=== PATIENT | female | born 1970 | race American Indian/Alaskan Native ===

== ENCOUNTER 2016-10-23 10:46 | Day surgery (SDC) | payer OTHER ==
[2016-10-23] MEDS ORDERED: NACL 0.9% 1000 ML 1,000 ML IV SCH (11:00)
--- NOTE | 2016-10-23 11:54 | Anesthesia Day of Surgery ---
Anesthesia Day of Surgery - Day of Surgery Patient Examined: Yes Patient H&P Reviewed: Yes Patient is NPO: Yes
--- NOTE | 2016-10-23 11:54 | Anesthesia Consultation ---
Anesthesia Consult and Med Hx Date of service: 10/23/16 - Airway Anesthetic Teeth Evaluation: Good ROM Head & Neck: Adequate Mental/Hyoid Distance: Adequate Mallampati Class: Class II Intubation Access Assessment: Probably Good - Pulmonary Exam CTA: Yes - Cardiac Exam Cardiac Exam: RRR - Pre-Operative Health Status ASA Pre-Surgery Classification: ASA2 Proposed Anesthetic Plan: MAC - Pulmonary Hx Smoking: Yes - Endocrine Hx Non-Insulin Dependent Diabetes: Yes - Other Systems Hx Cancer: No
[2016-10-23] MEDS ORDERED: DIPRIVAN 10 MG/ML IV ONE ×4 (11:56→12:39)
--- NOTE | 2016-10-23 12:06 | History and Physical Report ---
History of Present Illness Date of examination: 10/23/16 Date of admission: 10/23/2016 Chief complaint: Family history of colon cancer, colorectal cancer screening. History of present illness: Patient is a 46 -year-old female who presents for evaluation. She presents with a strong family history of colorectal cancers. Patient also has not had prior colorectal cancer screening examination. She is -Chinese. She denies any other complaints. Patient was referred by her primary care physician. Past History Past Medical History: diabetes, hypertension Past Surgical History: No surgical history Social history: denies: smoking, alcohol abuse Family history: cancer (colorectal cancer) Medications and Allergies Allergies Allergy/AdvReac Type Severity Reaction Status Date / Time cefazolin sodium [From [facility]] Allergy Hives Verified 10/20/16 14:01 grass pollen Allergy Itching, Verified 10/20/16 14:01 Swollen itchey eyes hydrocodone Allergy Shortness Verified 10/20/16 14:01 of Breath shellfish derived Allergy Anaphylaxis Verified 10/20/16 14:01 tomato Allergy blisters Verified 10/20/16 14:01 mouth and skin vancomycin Allergy Hives Verified 10/20/16 14:01 COCONUT FLAKES Allergy blisters Uncoded 10/20/16 14:01 mouth and skin Home Medications Medication Instructions Recorded Confirmed Last Taken Type Famotidine [Pepcid] 20 mg PO BID 10/20/16 10/23/16 10/21/16 History diphenhydrAMINE [Benadryl CAP] 25 mg PO QDAY PRN 10/20/16 10/23/16 10/21/16 History metFORMIN [Glucophage] 500 mg PO BID 10/20/16 10/23/16 10/21/16 History predniSONE [Deltasone] 20 mg PO BID 10/20/16 10/23/16 10/21/16 History Active Meds: Active Medications Sodium Chloride (Nacl 0.9% 1000 Ml) 1,000 mls @ 50 mls/hr IV DIRECT CARMELA Last Admin: 10/23/16 11:17 Dose: 50 mls/hr Review of Systems All systems: negative Exam - Constitutional Vitals: Temp Pulse Resp BP Pulse Ox 98.2 F 85 13 132/79 100 10/23/16 11:15 10/23/16 11:15 10/23/16 11:15 10/23/16 11:15 10/23/16 11:15 General appearance: Present: no acute distress, well-nourished - EENT Eyes: Present: PERRL ENT: hearing intact, clear oral mucosa - Neck Neck: Present: supple, normal ROM - Respiratory Respiratory effort: normal Respiratory: bilateral: CTA - Cardiovascular Heart Sounds: Present: S1 & S2. Absent: rub, click - Extremities Extremities: pulses symmetrical, No edema Peripheral Pulses: within normal limits - Abdominal General gastrointestinal: Present: soft, non-tender, non-distended, normal bowel sounds Female genitourinary: Present: normal - Integumentary Integumentary: Present: clear, warm, dry - Musculoskeletal Musculoskeletal: gait normal, strength equal bilaterally - Psychiatric Psychiatric: appropriate mood/affect, intact judgment & insight - Neurologic Neurologic: CNII-XII intact, moves all extremities Results - Labs Labs: Abnormal lab results 10/23/16 Range/Units 11:21 POC Glucose 112 H (70-105) Assessment and Plan Colorectal cancer. Family history of colon cancer. Plan: Proceed with colonoscopic assessment.
--- NOTE | 2016-10-23 12:09 | Operative Report ---
Operative Report Operative Report: Date of procedure: 10/23/2016 Procedure: Colonoscopy with ablation, multiple hot biopsy polypectomies, cold biopsies, submucosal injection with tattoo of polyp site. Attending physician: Patricio Her MD Superintendent General: Patricio Her MD Indication: Patient is a 46-year-old female who presents for colorectal cancer screening. She has a strong family history of colorectal cancer. A colonoscopy is done to evaluate patient so that treatment may be directed based on the findings. Consent: Informed consent was obtained after advising the patient and family regarding nature of this procedure, its indications, potential benefits as well as possible complications including but not limited to bleeding perforation and adverse reaction to medication, infection as well as other cardiopulmonary complications. An informed written and verbal consent was then obtained after due opportunity was provided for questions and answers. Monitoring: Patient was monitored continuously with pulse oximetry and electrocardiographic recordings as well as blood pressure recordings. Vital signs remained stable throughout this procedure with no untoward events. Preoperative assessment: Patient was assessed immediately prior to this procedure for capacity to tolerate monitored anesthesia care and moderate sedation as well as general anesthesia. Patient's ASA classification is 2, Mallampati class is 2, Hyomental distance is 3. Instrument: [employer] video-colonoscope Medications: Propofol given intravenously in divided doses. For details please refer to anesthesia records. Description of procedure: Patient was placed in the left lateral decubitus position after achieving sedation, a digital rectal examination was performed following which the colonoscope was introduced into the anal verge and advanced to the cecum which was identified by the cecal valve, the appendiceal orifice, as well as by the cecal strap and direct transillumination. The colonoscope was subsequently withdrawn with careful inspection of all mucosal surfaces. Patient tolerated this procedure well and was subsequently taken to the recovery room. The following findings were noted. Findings: Patient had a broad-based ascending colon polypoid lesion. It measured approximately 3 cm in length by about 2-3 cm in diameter and was flat. Endoscopically, it was highly suspicious for a dysplastic lesion and possibly even established colon cancer. It was not removable by endoscopy. Several cold cold biopsies were obtained from this. The proximal and distal margins was subsequently tattooed. This lesion was ablated also as much as possible. In the descending colon, there were 2 adjoining flat polyps that were removed by hot biopsy polypectomy. In the rectum, there was a diminutive flat polyp that was ablated. On the retroflex view at the anal verge patient had internal hemorrhoids. Impression: Abnormal appearing polypoid lesion in the ascending colon of unspecified significance. This likely represents a neoplasm or a dysplastic polyp. Descending colon polyp status post hot biopsy polypectomy. Rectal polyp status post ablation. Patient is status post a submucosal injection and tattoo of the proximal and distal margins of the proximal ascending colon polypoid lesion Internal hemorrhoids. Plan: Follow pathology report. Patient will need partial resection of the ascending colon particularly in the area involved by the dysplastic lesion. It should be noted that this was tattooed. This is particularly so if the lesion is found to have dysplasia or cancer. Patient does have a strong family history of colorectal cancer and this is her index colonoscopy. If indeed this lesion is resected, patient will need a surveillance colonoscopy in 6 months. In the interim will encourage high -fiber diet. Additional recommendations will be made in follow-up.
[2016-10-23] MEDS ORDERED: GI SPOT IJ ONE ×2 (12:24→12:29)
[2016-10-23 13:17] VITALS: BP 126/84
--- NOTE | 2016-10-23 13:24 | Post Anesthesia Evaluation ---
- Post Anesthesia Evaluation Patient Participated: Yes Airway Patent: Yes Stable Respiratory Function: Yes Nausea/Vomiting: No Temp > 96.8F: Yes Pain Manageable: Yes Adequeate Hydration: Yes Anesthesia Complications: No Block Receding Appropriately: Not Applicable Patient on Ventilator: No
== END 2016-10-23 10:47 | disposition home or self-care (01) ==
LOC: GIO 10:46
PROVIDERS: ATTEND Internal Medicine Gastroenterology
DX: Z12.11 Encounter for screening for malignant neoplasm of colon (principal); D12.2 Benign neoplasm of ascending colon; K63.5 Polyp of colon; K62.1 Rectal polyp; K64.8 Other hemorrhoids; I10 Essential (primary) hypertension; E11.9 Type 2 diabetes mellitus without complications; Z87.891 Personal history of nicotine dependence; Z88.1 Allergy status to other antibiotic agents; Z91.09 Other allergy status, other than to drugs and biological substances; Z88.8 Allergy status to other drugs, medicaments and biological substances; Z91.013 Allergy to seafood; Z91.018 Allergy to other foods; Z79.899 Other long term (current) drug therapy; Z79.84 Long term (current) use of oral hypoglycemic drugs; Z80.0 Family history of malignant neoplasm of digestive organs
CPT/HCPCS: 45380; 45381; 45384; 45388; 81025; 82962; 88305; J2704; J7030

== ENCOUNTER 2019-01-29 05:59 | Day surgery (SDC) | payer OTHER ==
--- NOTE | 2019-01-27 11:16 | Anesthesia Consultation ---
Anesthesia Consult and Med Hx Date of service: 01/29/19 - Airway Anesthetic Teeth Evaluation: Good ROM Head & Neck: Adequate Mental/Hyoid Distance: Adequate Mallampati Class: Class II Intubation Access Assessment: Good - Pre-Operative Health Status ASA Pre-Surgery Classification: ASA2 Proposed Anesthetic Plan: General - Pulmonary Hx Smoking: Yes - Central Nervous System Hx Psychiatric Problems: No - Endocrine Hx Non-Insulin Dependent Diabetes: Yes - Hematic Hx Anemia: Yes Hx Sickle Cell Disease: No - Other Systems Hx Cancer: No
[2019-01-27 11:18] LABS: Hematocrit 36.8 % (30.3-42.9); Hemoglobin 12.1 gm/dl (10.1-14.3); Mean Corpuscular HGB Conc 33 % (30-34); Mean Corpuscular Volume 86 fl (79-97); Platelet Count 247 K/mm3 (140-440); Red Blood Count 4.26 M/mm3 (3.65-5.03); Red Cell Distribution Width 14.8 % (13.2-15.2)
[2019-01-27 11:40] LABS: BUN/Creatinine Ratio 14; Blood Urea Nitrogen 7 mg/dL (7-17); Calcium 9.4 mg/dL (8.4-10.2); Hemolysis Index 15
--- NOTE | 2019-01-28 17:35 | History and Physical Report ---
History of Present Illness Date of examination: 01/27/19 Chief complaint: DUB, Endometrial Polyp History of present illness: Pt nelia 49 year old -[place] female who presents for surgical evaluation of dysfunctional uterine bleeding and endometrial biopsy consistent with endometrial polyp. 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 ), other (right wrist surgery, arm surgery ) ALARM OPERATOR History: fibroids Family/Genetic History: hypertension Social history: no significant social history - Obstetrical History : 6 Para: 4 Medications and Allergies Allergies Allergy/AdvReac Type Severity Reaction Status Date / Time cefazolin sodium [From [facility]] Allergy Hives Verified 01/23/19 17:49 grass pollen Allergy Itching, Verified 01/23/19 17:49 Swollen itchey eyes hydrocodone Allergy Shortness Verified 01/23/19 17:49 of Breath peanut Allergy Tongue Verified 01/23/19 17:49 swells Penicillins Allergy SOB, Verified 01/23/19 17:49 itching sesame seed Allergy Tongue Verified 01/23/19 17:49 swells shellfish derived Allergy Anaphylaxis Verified 01/23/19 17:49 tomato Allergy blisters Verified 01/23/19 17:49 mouth and skin vancomycin Allergy Hives Verified 01/23/19 17:49 COCONUT FLAKES Allergy blisters Uncoded 01/23/19 17:49 mouth and skin grits Allergy Angioedema Uncoded 01/23/19 17:49 Home Medications Medication Instructions Recorded Confirmed Last Taken Type metFORMIN [Glucophage] 500 mg PO BID 10/20/16 01/23/19 10/21/16 History Ferrous Sulfate [Feosol] 325 mg PO QDAY 01/23/19 01/23/19 Unknown History Active Meds: Active Medications Lactated Ringer's (Lactated Ringers) 1,000 mls @ 100 mls/hr IV DIRECT CARMELA Midazolam HCl (Versed) 2 mg IV PREOP NR Stop: 01/29/19 23:59 Review of Systems All systems: negative - Vital Signs Vital signs: Vital Signs Temp Pulse Resp BP Pulse Ox 97.5 F L 88 20 142/92 99 01/27/19 11:11 01/27/19 11:11 01/27/19 11:11 01/27/19 11:11 01/27/19 11:11 Temp Pulse Resp BP Pulse Ox 97.5 F L 88 20 142/92 99 01/27/19 11:11 01/27/19 11:11 01/27/19 11:11 01/27/19 11:11 01/27/19 11:11 - Physical Exam Breasts: Positive: deferred Cardiovascular: Regular rate Lungs: Positive: Clear to auscultation Abdomen: Positive: soft (obese ) Extremities: Positive: normal Results Result Diagrams: 01/27/19 10:50 01/27/19 10:50 All other labs normal. Assessment and Plan A: Dysfunctional Uterine Bleeding Fibroid Uterus Diabetes Mellitus Obesity P: Proceed with hysteroscopy, Myosure endometrial sampling with polypectomy and other indicated procedures.
[~2019-01-29 05:59] MED LIST: CLEOCIN 900 MG/50 mL 900 MG/50 ML BAG IV SCH; GENTAMICIN IV SCH; GENTAMICIN/NS 120MG/100ML 120 MG/100 ML BAG IV SCH; LACTATED RINGERS 1,000 ML IV SCH
[2019-01-29] MEDS ORDERED: VERSED IV NR (06:00)
[2019-01-29] MEDS ORDERED: CLEOCIN 900 MG/50 mL 900 MG/50 ML BAG IV ONE (06:39)
--- NOTE | 2019-01-29 07:15 | Anesthesia Day of Surgery ---
Anesthesia Day of Surgery - Day of Surgery Patient Examined: Yes Patient H&P Reviewed: Yes Patient is NPO: Yes
[2019-01-29] MEDS ORDERED: ZOFRAN IV PRN (07:16)
[2019-01-29] MEDS ORDERED: SUBLIMAZE IV PRN (07:16)
[2019-01-29] MEDS ORDERED: SILVER NITRATE TP ONE ×2 (07:22→08:30)
[2019-01-29] MEDS ORDERED: DIPRIVAN 10 MG/ML IV ONE ×2 (07:32→07:45)
[2019-01-29] MEDS ORDERED: XYLOCAINE MPF 2% ONE ×2 (07:32→08:21)
[2019-01-29] MEDS ORDERED: PHENYLEPHRINE/NS Syringe 1,000 MCG/10 ML IV ONE (07:56)
[2019-01-29] MEDS ORDERED: DECADRON ONE (08:05)
[2019-01-29] MEDS ORDERED: ZOFRAN ONE (08:05)
--- NOTE | 2019-01-29 08:20 | Operative Report ---
Operative Report Operative Report: Date of procedure: January 29, 2019 Preoperative diagnosis: 1)Dysfunctional Uterine Bleeding 2)Endometrial Polyp Postoperative diagnosis: Same Procedure: 1)Hysteroscopy 2)Myosure Endometrial Polypectomy Surgeon: Akua Montoya M.D. Findings: 1) Anteverted uterus which sounds to 9 cm 2) Sessile polyp on the posterior surface of the endometrium Anesthesia: General with LMA Estimated blood loss: 10 mL Specimens: endometrial polyp and curettings to pathology Drains: None Complications: None Disposition: Stable to PACU Indications for procedure: Pt is a 49 year old -Portuguese female who presents for surgical evaluation of dysfunctional uterine bleeding and endometrial biopsy consistent with endometrial polyp. Operation in detail: After the risks, benefits, alternatives and complications of the procedure were explained to the patient, she gave informed consent for the procedure. She was subsequently taken to the operating room and placed in the dorsal supine position with her IV noted to be running well. SCDs noted to be in place and functioning. General anesthesia was then induced without difficulty. The patient was in placed in dorsal lithotomy position and prepped and draped in normal sterile fashion. A timeout was performed. An exam under anesthesia was performed yielding a mobile anteverted uterus. A bass catheter was placed to drain the bladder yielding clear urine. An open sided speculum was then placed into the vagina for adequate visualization of the cervix. The anterior lip of the cervix was then grasped with a tenaculum for traction. The uterus sounded to 9 cm. The cervix was then dilated to a #19 with Thompson dilators. At this time, a hysteroscope was introduced to visualize the endometrial cavity which revealed a sessile endometrial polyp. The Myosure device was used to excise the polyp as well as to sample the endometrium. All curettings were sent to pathology. All instruments were removed from the uterus atraumatically. At this time, the single-tooth tenaculum was removed from the cervix. Silver nitrate was placed over the tenaculum puncture sites for hemostasis. All instruments were removed from the vagina atraumatically and the procedure was ended. The bass catheter was then removed atraumatically. The patient was placed into the dorsal supine position and extubated without difficulty. She was subsequently taken to the PACU in stable condition. She tolerated the procedure well. All counts were correct 2.
--- NOTE | 2019-01-29 08:24 | Short Stay Summary ---
Short Stay Documentation Date of service: 01/29/19 - History H&P: dictated Social history: no significant social history - Allergies and Medications Current Medications: Allergies cefazolin sodium [From [facility]] Allergy (Verified 01/23/19 17:49) Hives grass pollen Allergy (Verified 01/23/19 17:49) Itching, Swollen itchey eyes hydrocodone Allergy (Verified 01/23/19 17:49) Shortness of Breath peanut Allergy (Verified 01/23/19 17:49) Tongue swells Penicillins Allergy (Verified 01/23/19 17:49) SOB, itching sesame seed Allergy (Verified 01/23/19 17:49) Tongue swells shellfish derived Allergy (Verified 01/23/19 17:49) Anaphylaxis tomato Allergy (Verified 01/23/19 17:49) blisters mouth and skin vancomycin Allergy (Verified 01/23/19 17:49) Hives egg Adverse Reaction (Verified 01/29/19 07:11) Unknown COCONUT FLAKES Allergy (Uncoded 01/23/19 17:49) blisters mouth and skin grits Allergy (Uncoded 01/23/19 17:49) Angioedema Home Medications Medication Instructions Recorded Confirmed Last Taken Type metFORMIN [Glucophage] 500 mg PO BID 10/20/16 01/29/19 01/28/19 20:00 History Ferrous Sulfate [Feosol] 325 mg PO QDAY 01/23/19 01/29/19 01/28/19 20:00 History Active Medications Fentanyl (Sublimaze) 50 mcg IV Q5MIN PRN PRN Reason: Pain , Severe (7-10) Stop: 01/29/19 20:00 Lactated Ringer's (Lactated Ringers) 1,000 mls @ 100 mls/hr IV DIRECT CARMELA Last Admin: 01/29/19 06:55 Dose: 100 mls/hr Documented by: Clindamycin HCl (Cleocin 900 Mg/50 Ml) 900 mg in 50 mls @ 100 mls/hr IV PREOP CARMELA; Protocol Stop: 01/29/19 23:00 Gentamicin Sulfate/Sodium Chloride (Gentamicin/Ns 120mg/100ml) 120 mg in 100 mls @ 200 mls/hr IV PREOP CARMELA Stop: 01/29/19 23:00 Midazolam HCl (Versed) 2 mg IV PREOP NR Stop: 01/29/19 23:59 Last Admin: 01/29/19 07:16 Dose: 2 mg Documented by: Ondansetron HCl (Zofran) 4 mg IV ONCE PRN PRN Reason: Nausea And Vomiting - Physical exam Breasts: deferred - Brief post op/procedure progress note Date of procedure: 01/29/19 Pre-op diagnosis: Dysfunctional Uterine Bleeding, Endometrial Polyp Post-op diagnosis: same Procedure: Hysteroscopy Myosure endometrial sampling with polypectomy Anesthesia: GETA Findings: 1) Anteverted uterus which sounds to 9 cm 2) Sessile polyp on the posterior surface of the endometrium Surgeon: MAGALI MONTOYA Estimated blood loss: minimal Pathology: list (endometrial curettings) Specimen disposition: to lab Condition: stable - Hospital course Hospital course: Pt underwent hysteroscopy and Myosure endometrial sampling with polypectomy which she tolerated well. She was observed in the PACU until she met discharge criteria. She will follow up in the office in [address] Montoya. - Disposition Condition at discharge: Stable Disposition: TO HOME OR SELFCARE - Discharge Diagnoses (1) Dysfunctional uterine bleeding Status: Acute (2) Endometrial polyp Status: Acute (3) Fibroid uterus Status: Acute Qualifiers: Uterine leiomyoma location: unspecified location Qualified Code(s): D25.9 - Leiomyoma of uterus, unspecified (4) Obesity Status: Acute Qualifiers: Obesity classification: adult class 2 (BMI 35 - 39.9) Serious obesity comorbidity presence: unspecified whether serious comorbidity present Body mass index: BMI 39.0-39.9 (5) Diabetes Status: Acute Qualifiers: Diabetes mellitus type: type 2 Short Stay Discharge Plan Activity: other (Nothing in vagina, no tub baths, no swimming for 4 weeks ) Weight Bearing Status: Full Weight Bearing Diet: diabetic Follow up with: YANDEL COCHRAN MD [Primary Care Provider] - 7 Days MAGALI MONTOYA MD [Staff Physician] - 7 Days (Please call the office to schedule a post op appt next week. ) Prescriptions: Ibuprofen [Motrin] 800 mg PO Q8HR PRN #30 tablet PRN Reason: Pain, Moderate (4-6) traMADol [Ultram 50 MG tab] 50 mg PO Q6HR PRN #20 tablet PRN Reason: Pain
[2019-01-29] MEDS ORDERED: NACL 0.9% IR ONE (08:30)
[2019-01-29 09:45] VITALS: BP 123/77
== END 2019-01-29 06:00 | disposition home or self-care (01) ==
LOC: OR 05:59
PROVIDERS: ATTEND Obstetrics & Gynecology
DX: N84.0 Polyp of corpus uteri (principal); N93.9 Abnormal uterine and vaginal bleeding, unspecified; E66.9 Obesity, unspecified; E11.9 Type 2 diabetes mellitus without complications; Z98.51 Tubal ligation status; Z98.890 Other specified postprocedural states; Z91.010 Allergy to peanuts; Z91.012 Allergy to eggs; Z88.0 Allergy status to penicillin; Z91.013 Allergy to seafood; Z68.39 Body mass index [BMI] 39.0-39.9, adult; Z86.2 Personal history of diseases of the blood and blood-forming organs and certain disorders involving the immune mechanism
CPT/HCPCS: 36415; 58558; 80048; 82962; 84703; 85027; 88305; A4217; C1782; J1100; J1580; J2250; J2370; J2405; J2704; J3010; J7120